=== PATIENT | female | born 1960 | race Caucasian/White ===

== ENCOUNTER 2024-02-15 21:56 | Observation (INO) | payer OTHER, MEDICARE ==
[~2024-02-15] VITALS: Ht 162.6 cm; Wt 67.6 kg
[2024-02-15] MEDS ORDERED: ROCURONIUM BROMIDE 50 MG/5 ML VIAL IV ONE (22:00)
[2024-02-15] MEDS ORDERED: ETOMIDATE 40 MG/20 ML VIAL IV ONE (22:00)
[2024-02-15] MEDS ORDERED: LACTATED RINGER'S 1,000 ML IV ONE (22:15)
[2024-02-15] MEDS ORDERED: propofoL 100 ML IV SCH (22:15)
[2024-02-15 22:16] LABS: BASOPHILS 0.5 % (0-2); EOSINOPHILS 2.5 % (0-6); HEMATOCRIT 33.2 % (35.0-50.0); HEMOGLOBIN 11.2 g/dL (12.0-18.0); LYMPHOCYTES 48.6 % (24-44); MCH 32.1 (27-36); MCHC 33.9 g/dl (30-36); MCV 94.9 fl (81-99); MONOCYTES 7.4 % (0-12); PLATELET COUNT 246 K/uL (140-440); RDW 13.3 (10.5-15.0)
[2024-02-15 22:21] LABS: BILIRUBIN, URINE POSITIVE (negative); BLOOD/HGB, URINE NEGATIVE (Negative); KETONE, URINE TRACE (Negative); LEUK ESTERASE, URINE NEGATIVE (negative); NITRITE, URINE NEGATIVE (negative); PH, URINE 5.5 (5-7)
[2024-02-15 22:31] LABS: AMPHETAMINES, URINE NEGATIVE (NEGATIVE); BARBITURATES, URINE NEGATIVE (NEGATIVE); BENZODIAZEPINE, URINE NEGATIVE (NEGATIVE); BUPRENORPHINE, URINE NEGATIVE (NEGATIVE); CANNABINOID, URINE NEGATIVE (NEGATIVE); COCAINE, URINE NEGATIVE (NEGATIVE); ECSTASY, URINE NEGATIVE (NEGATIVE); FENTANYL, URINE NEGATIVE (NEGATIVE); METHADONE, URINE NEGATIVE (NEGATIVE); OPIATES, URINE NEGATIVE (NEGATIVE); OXYCODONE, URINE NEGATIVE (NEGATIVE); PHENCYCLIDINE, URINE NEGATIVE (NEGATIVE)
[2024-02-15 22:31] LABS: ALBUMIN 3.5 g/dL (3.4-5.0); ALBUMIN/GLOBULIN RATIO 1.13 (1.1-2.4); ALCOHOL, MEDICAL 101 ng/dL (<3); ALKALINE PHOSPHATASE 96 U/L (46-116); ALT (SGPT) 36 U/L (14-59); AST (SGOT) 26 U/L (15-37); BILIRUBIN, TOTAL 0.2 ng/dL (0.2-1.0); BUN/CREATININE RATIO 10.46 (6.0-28.6); CALCIUM 7.9 mg/dL (8.5-10.1); CARBON DIOXIDE 22 mmol/L (21-32); CHLORIDE 104 mmol/L (98-107); CREATININE, SERUM 0.86 mg/dL (0.55-1.02); GLOMERULAR FILTRATION RATE,EST 76 mL/min (>60); PARTIAL THROMBOPLASTIN TIME 23.8 Sec (22.9-41.3); PROTEIN, TOTAL 6.6 g/dL (6.4-8.2); UREA NITROGEN 9 mg/dL (7-18)
[2024-02-15 22:33] LABS: INR 0.94 (0.80-1.30); PROTIME 11.9 Sec (11.2-14.2)
[2024-02-15] MEDS ORDERED: POTASSIUM CHLORIDE 20 MEQ/15 ML CUP PT ONE (22:45)
[2024-02-15 22:56] LABS: BASE EXCESS, BLOOD GAS -3.7 mmol/L (-2-2); HCO3, BLOOD GAS 20.7 mmol/L (22-26); O2 SATURATION, BLOOD GAS > 100.0 % (95.0-100.0); PH, BLOOD GAS 7.39 (7.35-7.45); PO2, BLOOD GAS 539 mmHg (80-100); TOTAL CO2, BLOOD GAS 21.7
[2024-02-15 22:57] LABS: OXYGEN RECEIVED, BLOOD GAS VENTILATOR
[2024-02-15] MEDS ORDERED: LACTATED RINGER'S 1,000 ML IV SCH (23:30)
[2024-02-16] MEDS ORDERED: ondansetron HCL 4 MG/2 ML VIAL ONE (00:38)
[2024-02-16] MEDS ORDERED: ondansetron HCL 4 MG/2 ML VIAL IV ONE (01:00)
[2024-02-16 01:03] LABS: LACTIC ACID, BLOOD 2.3 mmol/L (0.4-2.0)
[2024-02-16] MEDS ORDERED: LACTATED RINGER'S 1,000 ML IV ONE (01:45)
[2024-02-16] MEDS ORDERED: CEFTRIAXONE/SODIUM CHLORIDE 2 GM/100 ML PIGGYBACK IV ONE (01:45)
[2024-02-16 02:12] LABS: CLARITY, CEREBROSPINAL FLUID CLEAR; COLOR, CEREBROSPINAL FLUID CLEAR
[2024-02-16 02:13] LABS: RBC, CEREBROSPINAL FLUID 423; WBC, CEREBROSPINAL FLUID <1
[2024-02-16 03:20] LABS: GLUCOSE, CSF 78 mg/dL (40-70); PROTEIN, CSF 18 mg/dL (15-45)
[2024-02-16 05:36] VITALS: BP 105/59
[2024-02-16] MEDS ORDERED: SODIUM CHLORIDE 0.9% 1,000 ML IV SCH (05:45)
--- NOTE | 2024-02-16 05:45 | NUR ---
PATIENT ARRIVED TO THE UNIT. MOVED OVER TO BED WITH ASSISTANCE. PATIENT IS AAOX4. REPORTS HER THROAT IS SORE AND SHE IS TIRED BUT DENIED PAIN OR GI CONCERNS. VS STABLE. PATIENT TOLERATING ROOM AIR. LUNG SOUNDS ARE CLEAR. ABD SOFT AND BOWEL SOUNDS ACTIVE. MACDONALD IN PLACE. GOOD URINE OUTPUT NOTED. CMS INTACT. IV FLUIDS CONTINUED PER ORDER, IV SITES WNL X2. PATIENT'S AT BEDSIDE.
--- NOTE | 2024-02-16 06:18 | NUR ---
PATIENT TO MRI. STATED PATIENT WAS SAFE TO GO UNATTENDED BY NURSING STAFF. PATIENT UP INTO WC WITH MINIMAL ASSIST.
--- NOTE | 2024-02-16 06:57 | NUR ---
PATIENT RETURNED FROM MRI. TRANSFERED EASILY TO THE BED. PLACED BACK ON MONITOR. VS STABLE. PATIENT AAOX4. MACDONALD CATH DC'd PER . PATIENT TOLERATED WELL. CALL LIGHT IN REACH.
--- NOTE | 2024-02-16 07:52 | NUR ---
REPORT RECEIVED FROM BEN SAUCEDA. PT IN BED WITH EYES CLOSED, RESP EVEN AND UNLABORED, ON ROOM AIR WITH SPO2 99% AND RR 13, HR 100 SR.
--- NOTE | 2024-02-16 08:58 | NUR ---
IN TO SEE PT AND DO ASSESSMENT, SHE DENIES PAIN OR NEEDS. DR WONG HAS ALREADY COME IN AND DISCUSSED PLAN TO CONSULT NUEROLOGIST WITH MRI RESULTS. PT HAS NO QUESTIONS OR NEEDS.
--- NOTE | 2024-02-16 10:23 | NUR ---
UR CLINICAL REVIEW: MCG/2 MN FOR VERSALUS-MEETS CRITERIA [facility] OBS 02/15/24 @ 2200 NO PRIOR AUTH REQUIRED FOR OBS STAY DISCHARGE TO HOME WHENS STABLE,LIKELY TODAY. 02/17/24
--- NOTE | 2024-02-16 11:05 | NUR ---
PT ASSISTED UP TO BR, STEADY ON FEET, BACK TO BED. DENIES NEEDS AT THIS TIME.
[2024-02-16] MEDS ORDERED: PHARMACY RENAL DOSE ADJUSTMENT 1 DOSE MISC PO SCH (12:00)
--- NOTE | 2024-02-16 12:15 | NUR ---
SPOKE TO PATIENT ABOUT THE DISCHARGE PLAN. PATIENT WILL BE DISCHARGED TODAY. PATIENT IS ABLE TO DO HER OWN ADLS AND DRIVES A CAR. PATIENT OWNS A HOUSE AND CAN AFFORD FOOD AND UTILITIES. THE PATIENT DOES NOT USE DME. THAT PATIENT HAS FRIENDS AND FAMILY THAT HELP IF NEEDED. PATIENT DOES NOT NEED PLACEMENT AND PLANS TO GO HOME.
--- NOTE | 2024-02-16 17:14 | EKG ---
[facility] [address] [place], [place] [address] Signed Normal sinus rhythm Prolonged QT Abnormal ECG No previous ECGs available Confirmed by MARIA A WONG MD ([id number]) on 02/16/2024 5:14:31 PM Electronically Signed By: MARIA A WONG 02/16/24 1714 PATIENT NAME: KARLA CASTILLO Electrocardiogram DATE OF : 62 PHYSICIAN: MARIA A WONG REPORT #: [id number] REPORT IS CONFIDENTIAL AND NOT TO BE RELEASED WITHOUT AUTHORIZATION
== END 2024-02-16 12:15 | disposition home or self-care (01) ==
LOC: ED 21:56 → CCU 22:00
PROVIDERS: Internal Medicine; ADMIT Internal Medicine; ATTEND Internal Medicine
DX: R55 Syncope and collapse (principal); E87.6 Hypokalemia; G43.909 Migraine, unspecified, not intractable, without status migrainosus; F10.129 Alcohol abuse with intoxication, unspecified; G93.40 Encephalopathy, unspecified; W18.30XA Fall on same level, unspecified, initial encounter; Y92.511 Restaurant or cafe as the place of occurrence of the external cause
CPT/HCPCS: 31500; 36415; 36600; 51702; 62270; 70450; 70496; 70498; 70553; 71045; 80053; 80307; 81003; 82803; 82945; 83605; 83735; 84157; 84484; 85025; 85610; 85651; 85730; 86140; 87040; 87070; 87075; 87205; 89051; 93005; 93010; 94002; 99291; 99292; A9270; A9579; G0378; G0480; J0696; J2405; J2704; J7121; Q9967